=== PATIENT | female | born 2005 | race Hispanic/Latino ===

== ENCOUNTER 2024-07-08 14:48 | Outpatient (CLI) | payer SELFPAY ==
[2024-07-08 16:01] LABS: #Basophils 0.05 10x3/uL (0.0-0.2); #Eosinophils 0.03 10x3/uL (0.0-0.5); #Monocytes 0.43 10x3/uL (0.0-1.1); #Neutrophils 2.24 10x3/uL (1.5-8.4); %Basophils 0.9 % (0.0-2.0); %Eosinophils 0.5 % (0.0-6.0); %Lymphocytes 50.5 % (18.0-47.0); %Monocytes 7.7 % (0.0-10.0); %Neutrophils 40.2 % (40.0-75.0); Hematocrit 38.5 % (34.9-44.5); Hemoglobin 13.6 g/dL (12.0-15.5); Mean Corpuscular HGB CONC 35.3 g/dL (32.0-36.0); Mean Corpuscular Hemoglobin 34.4 pg (27.0-33.0); Mean Corpuscular Volume 97.5 fL (81.6-98.3); Mean Platelet Volume 9.7 fL (7.4-10.4); Platelet Count 246 10x3/uL (150-450); RBC Distribution Width 11.2 % (11.5-14.5); Red Blood Cell (RBC) Count 3.95 10x6/uL (3.90-5.03); White Blood Cell (WBC) Count 5.6 10x3/uL (3.5-10.5)
[2024-07-08 16:13] LABS: Anion Gap 12 mmol/L (10-20); BUN (Urea Nitrogen) 12 mg/dL (7.0-18.7); Calc. Creatinine Clearance 0 mL/min (70-130); Calcium 10.4 mg/dL (7.8-10.44); Carbon Dioxide 28 mmol/L (22-29); Chloride 104 mmol/L (98-107); Estimated GFR 110; Glucose 102 mg/dL (70-105); Sodium 140 mmol/L (136-145)
[2024-07-08 16:18] LABS: BHCG - Serum Negative (NEGATIVE); Pregs Control Background? CLEAR/WHITE (CLR/WHITE); Pregs Control Bar Appear? YES (CONTROL BAR)
== END 2024-07-08 14:49 | disposition home or self-care (01) ==
LOC: CSHLAB 14:48
PROVIDERS: ATTEND Specialist
DX: Z01.812 Encounter for preprocedural laboratory examination (principal); L98.8 Other specified disorders of the skin and subcutaneous tissue
CPT/HCPCS: 80048; 84703; 85025

== ENCOUNTER 2024-07-10 07:40 | Day surgery (SDC) | payer SELFPAY ==
[2024-07-08 15:41] VITALS: BMI 20.9
[2024-07-10] MEDS ORDERED: Acetaminophen 500 MG TAB ONE (08:55)
[2024-07-10] MEDS ORDERED: Ketorolac Tromethamine 30 MG (1 mL) VIAL ONE ×2 (08:55→10:39)
[2024-07-10] MEDS ORDERED: Bupivacaine/Epinephrine 0.25% 30 ML VIAL ONE (09:32)
[2024-07-10] MEDS ORDERED: Triple Antibiotic Oint 1 GM Packet ONE (09:32)
[2024-07-10] MEDS ORDERED: Methylene Blue 50 MG/10 ML AMPUL ONE (09:32)
[2024-07-10] MEDS ORDERED: fentaNYL 50 mcg/mL 1 mL Vial ONE (09:39)
[2024-07-10] MEDS ORDERED: Rocuronium Bromide 10 MG/ML (10ML VIAL) ONE (09:39)
[2024-07-10] MEDS ORDERED: PROPOFOL 20 ML ONE (09:39)
[2024-07-10] MEDS ORDERED: Lidocaine 1% PF 5 ML VIAL ONE (09:39)
[2024-07-10] MEDS ORDERED: CEFAZOLIN 2 GM VIAL ONE (09:58)
[2024-07-10] MEDS ORDERED: Midazolam HCl 2 mg/2 ml Vial ONE (10:03)
[2024-07-10] MEDS ORDERED: Ondansetron PF 4 MG/2 ML Vial ONE (10:38)
[2024-07-10] MEDS ORDERED: Dexamethasone 4 mg/ml Vial ONE (10:38)
[2024-07-10] MEDS ORDERED: HYDROcodone/Acetaminophen 5/325 mg Tablet ONE (12:08)
== END 2024-07-10 13:05 | disposition home or self-care (01) ==
LOC: CSHSDC 07:40
PROVIDERS: ATTEND Specialist
PROC: 0JB90ZZ Excision of Buttock Subcutaneous Tissue and Fascia, Open Approach (ICD-10-PCS; principal; 2024-07-10)
DX: L05.91 Pilonidal cyst without abscess (principal); L98.8 Other specified disorders of the skin and subcutaneous tissue
CPT/HCPCS: 88304; J1100; J1885; J2250; J2405; J2704; J3010